=== PATIENT | male | born 1950 | race Two or more races ===

== ENCOUNTER 2016-11-21 13:39 | Inpatient (IN) | payer OTHER ==
[~2016-11-21] VITALS: Ht 198.1 cm; Wt 88.0 kg
[2016-11-21] MEDS ORDERED: BENAZEPRIL HCL10 MG ORAL (13:45)
[2016-11-21] MEDS ORDERED: SIMVASTATIN5 MG ORAL (13:45)
--- NOTE | 2016-11-21 13:50 | Emergency Room Report ---
History of Present Illness General Chief Complaint: General Complaint Source: Patient, EMS Present Illness HPI Patient 66-year-old male who presented after increased palpitations. Patient was brought in by EMS. Patient was noted to have a rapid heartbeat with a rate of 180. Patient denied chest pain. He reported feeling slightly lightheaded at the time of palpitations. He denied prior episodes. Patient stated that he was having some brief episode of chest pain which lasted less than 20 minutes. The patient denied recent fever. He denied any vomiting. Allergies: Coded Allergies: No Known Allergies (Unverified , 11/21/16) Patient History Past Medical History: see triage record Reviewed Nursing Documentation: PMH: Agreed, PSxH: Agreed Nursing Documentation-PMH Past Medical History: No History, Except For Hx Hypertension: Yes Review of Systems All Other Systems: negative except mentioned in HPI Physical Exam Vital Signs Date Time Temp Pulse Resp B/P Pulse Ox O2 Delivery O2 Flow Rate FiO2 11/21/16 13:37 97.0 96 20 124/86 95 Room Air Sp02 EP Interpretation: reviewed, normal General Appearance: normal inspection, well appearing, no apparent distress, alert, GCS 15 Head: atraumatic ENT: normal ENT inspection, hearing grossly normal, normal voice Neck: normal inspection, full range of motion, supple, no bony tend Respiratory: normal inspection, lungs clear, normal breath sounds, no respiratory distress, no retraction, no wheezing Cardiovascular #1: regular rate, rhythm, no edema Gastrointestinal: normal inspection, normal bowel sounds, non tender, soft, no guarding, no hernia Genitourinary: no CVA tenderness Musculoskeletal: normal inspection, back normal, normal range of motion Neurologic: normal inspection, alert, oriented x3, responsive, bobtailer III-XII nml as tested, speech normal Psychiatric: normal inspection, judgement/insight normal, mood/affect normal Skin: normal inspection, normal color, no rash Medical Decision Making Diagnostic Impression: Primary Impression: Supraventricular arrhythmia Additional Impression: ACS (acute coronary syndrome) ER Course Patient presented for palpitations. The differential diagnosis included was not limited to arrhythmia, thyroid storm, sepsis, anemia, myocardial infarction , alcohol withdrawal, stimulant abuse, caffeine overdose among others. Because of complexity of patient's case laboratory testing and imaging studies were ordered.The patient was noted to have some possible ischemic changes on his EKG. Patient denied any chest pain throughout stay. Patient was given metoprolol 5 mg IV. A chest x-ray one view read by radiology showed a atelectasis without evident infiltrate or possible mild cardiomegaly. The patient's initial laboratory testing was unremarkable.Patient is being admitted due to ischemic changes on EKG and need for further cardiac workup. Dr. Luis Angel Mathis was contacted for inpatient management. Labs Test 11/21/16 14:25 White Blood Count 6.5 K/UL (4.8-10.8) Red Blood Count 5.69 M/UL (4.70-6.10) Hemoglobin 16.9 G/DL (14.2-18.0) Hematocrit 50.8 % (42.0-52.0) Mean Corpuscular Volume 89 FL (80-99) Mean Corpuscular Hemoglobin 29.6 PG (27.0-31.0) Mean Corpuscular Hemoglobin Concent 33.2 G/DL (32.0-36.0) Red Cell Distribution Width 12.4 % (11.6-14.8) Platelet Count 177 K/UL (150-450) Mean Platelet Volume 7.7 FL (6.5-10.1) Neutrophils (%) (Auto) 73.0 % (45.0-75.0) Lymphocytes (%) (Auto) 16.7 % (20.0-45.0) Monocytes (%) (Auto) 7.6 % (1.0-10.0) Eosinophils (%) (Auto) 1.4 % (0.0-3.0) Basophils (%) (Auto) 1.4 % (0.0-2.0) Prothrombin Time 10.5 SEC (9.30-11.50) Prothromb Time International Ratio 1.0 (0.9-1.1) Activated Partial Thromboplast Time 27 SEC (23-33) Sodium Level 136 mEQ/L (135-145) Potassium Level 4.6 mEQ/L (3.4-4.9) Chloride Level 95 mEQ/L (98-107) Carbon Dioxide Level 22 mEQ/L (20-30) Anion Gap 19 (5-15) Blood Urea Nitrogen 17 mg/dL (7-23) Creatinine 1.0 mg/dL (0.7-1.2) Estimat Glomerular Filtration Rate > 60 mL/min (>60) Glucose Level 106 mg/dL (74-106) Calcium Level 9.9 mg/dL (8.6-10.2) Total Bilirubin 0.3 mg/dL (0.0-1.2) Aspartate Amino Transf (AST/SGOT) 39 U/L (5-40) Alanine Aminotransferase (ALT/SGPT) 25 U/L (3-41) Alkaline Phosphatase 55 U/L (40-129) Total Creatine Kinase 179 U/L (38-174) Creatine Kinase MB 4.4 ng/mL (< 6.7) Creatine Kinase MB Relative Index 2.4 Troponin I < 0.30 ng/mL (<=0.30) Pro-B-Type Natriuretic Peptide 24 pg/mL (0-125) Total Protein 7.7 g/dL (6.6-8.7) Albumin 4.5 g/dL (3.5-5.2) Globulin 3.2 g/dL Albumin/Globulin Ratio 1.4 (1.0-2.7) EKG Diagnostic Results Rate: normal - 98 Rhythm: NSR ST Segments: other - slight st depression lateral leads rate 98 ASA given to the pt in ED: Yes Last Vital Signs Date Time Temp Pulse Resp B/P Pulse Ox O2 Delivery O2 Flow Rate FiO2 11/21/16 13:37 97.0 96 20 124/86 95 Room Air Status: improved Disposition: ADMITTED INPATIENT Condition: Serious Rich Triplett November 21, 2016 13:50
[2016-11-21] MEDS ORDERED: Aspirin Baby 81mg ORAL ONE (14:00)
[2016-11-21 14:58] LABS: BASOPHILS % (AUTO) 1.4 % (0.0-2.0); EOSINOPHILS % (AUTO) 1.4 % (0.0-3.0); LYMPHOCYTES % (AUTO) 16.7 % (20.0-45.0); MEAN CORPUSCULAR HEMOGLOBIN 29.6 PG (27.0-31.0); MEAN CORPUSCULAR HGB CONC 33.2 G/DL (32.0-36.0); MEAN CORPUSCULAR VOLUME 89 FL (80-99); MEAN PLATELET VOLUME 7.7 FL (6.5-10.1); MONOCYTES % (AUTO) 7.6 % (1.0-10.0); PLATELET COUNT 177 K/UL (150-450); RED BLOOD COUNT 5.69 M/UL (4.70-6.10); RED CELL DISTRIBUTION WIDTH 12.4 % (11.6-14.8); WHITE BLOOD COUNT 6.5 K/UL (4.8-10.8)
[2016-11-21] MEDS ORDERED: Metoprolol 5mg/5ml Inj IVP ONE (15:00)
[2016-11-21 15:13] LABS: ALANINE AMINOTRANSFERASE 25 U/L (3-41); ALBUMIN/GLOBULIN RATIO 1.4 (1.0-2.7); ANION GAP 19 (5-15); ASPARTATE AMINO TRANSFERASE 39 U/L (5-40); CALCIUM 9.9 mg/dL (8.6-10.2); CARBON DIOXIDE 22 mEQ/L (20-30); CHLORIDE 95 mEQ/L (98-107); GLOMERULAR FILTRATION RATE > 60 mL/min (>60); HEMOLYSIS 207; POTASSIUM 4.6 mEQ/L (3.4-4.9); SODIUM 136 mEQ/L (135-145); TOTAL PROTEIN 7.7 g/dL (6.6-8.7); TROPONIN I < 0.30 ng/mL (<=0.30)
[2016-11-21 15:23] LABS: CKMB 4.4 ng/mL (< 6.7); PROTHROMBIN TIME 10.5 SEC (9.30-11.50)
[2016-11-21 15:28] VITALS: BP 127/89
[2016-11-21 17:58] VITALS: BP 112/65
[2016-11-21 19:45] VITALS: BP 106/69
[2016-11-21 20:32] VITALS: BP 113/71
[2016-11-21 20:33] VITALS: BP 113/71
[2016-11-21 23:44] LABS: TROPONIN I < 0.30 ng/mL (<=0.30)
--- NOTE | 2016-11-21 23:49 | Consultation ---
DATE OF CONSULTATION: 11/21/2016 CARDIOLOGY CONSULTATION CONSULTING PHYSICIAN: Luis Angel Mathis M.D. REQUESTING PHYSICIAN: Amandeep Ness M.D. REASON FOR ADMISSION: Chest pain. HISTORY OF PRESENT ILLNESS: This is a 66-year-old male with multiple risk factors for premature coronary disease. 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 Paramedics were summoned and reportedly, he had SVT, although no strips were obtained. The patient was transported here where his initial electrocardiogram revealed sinus rhythm with no acute changes and troponin I was negative. PAST MEDICAL HISTORY: Hypertension and hyperlipidemia. MEDICATIONS: Medications prior to admission reviewed and reconciled. ALLERGIES: None. SOCIAL HISTORY: Denies smoking or alcohol use. REVIEW OF SYSTEMS: No fevers or chills. No cough. No history of asthma. No history of blood clotting. No change in bowel habits. No history of prostate cancer. No history of seizure or stroke. No history of diabetes or thyroid disorder. He is on anti-lipid drugs. PHYSICAL EXAMINATION: GENERAL: The patient is well developed, well nourished, in no distress. VITAL SIGNS: Blood pressure 124/86, pulse 96, respirations 20, and afebrile. HEENT: Conjunctivae are pink. Sclerae are anicteric. Oropharynx clear. Mucous membranes moist. No arcus senilis or xanthelasma. NECK: Supple. No bruits or adenopathy. LUNGS: Clear. CHEST WALL: Without tenderness or deformity. CARDIAC: Regular rhythm and rate. Normal S1 and S2 with no murmur, rub, or gallop. ABDOMEN: Soft and nontender. EXTREMITIES: Without edema. NEUROLOGIC: Nonfocal. Distal pulses 2+. LABORATORY AND DIAGNOSTIC DATA: Chest x-ray is reportedly negative, but needs to be reviewed by me. IMPRESSION: 1. Acute coronary syndrome. 2. History of hypertension. 3. History of hyperlipidemia. 4. Possible supraventricular tachycardia, self-limited. PLAN: Cardiac monitoring. Oral aspirin. Beta-blockade. Continue statin drug. Check for lipid panel, thyroid panel, and serial troponin levels. If no definitive signs of ischemia, we will initiate provocative stress test to assess coronary flow reserve. Luis Angel Mathis M.D. DR: Radha JOB#: [id number] CC:
[2016-11-22] VITALS (7 sets, daily range): BP systolic 98–140; BP diastolic 55–79
[2016-11-22] MEDS: Aspirin Baby 81mg ORAL SCH (08:05)
[2016-11-22] MEDS: Carvedilol 6.25mg Tab ORAL SCH ×2 (08:05→21:11)
[2016-11-22] MEDS: Heparin 5000 units/ml inj SUBQ SCH ×2 (08:08→21:12)
[2016-11-22 08:30] LABS: TROPONIN I < 0.30 ng/mL (<=0.30)
[2016-11-22 08:35] LABS: THYROID STIMULATING HORMONE 1.51 uIU/mL (0.300-4.500)
--- NOTE | 2016-11-22 12:46 | Cardiology Report ---
APPROVED REPORT EKG Measurement Heart [id number] Normal sinus rhythm Normal ECG
--- NOTE | 2016-11-22 13:07 | Cardiology Report ---
APPROVED REPORT EXAM: Two-dimensional and M-mode echocardiogram with Doppler and color Doppler. INDICATION Chest Pain M-Mode DIMENSIONS IVSd1.7 (0.7-1.1cm)Left Atrium (MM)3.4 (1.6-4.0cm) LVDd4.4 (3.5-5.6cm)Aortic Root4.4 (2.0-3.7cm) PWd1.4 (0.7-1.1cm)Aortic Cusp Exc.1.8 (1.5-2.0cm) LVDs3.0 (2.5-4.0cm) Normal left ventricular chamber size, systolic function and wall motion. Left ventricular ejection fraction estimated to be 60-65 %. Moderate left ventricular hypertrophy. Anterior Echo-free space, may be due to pericardial fat or effusion. All other cardiac chamber sizes are within normal limits. Focal aortic valve sclerosis with adequate cusp excursion. Thickened mitral valve leaflets with normal excursion. Mitral annulus and aortic root calcification. Aortic root dilatation. Pulmonic valve not well visualized. Normal tricuspid valve structure. IVC at normal size with physiologic collapse. A color flow and spectral Doppler study was performed and revealed: Moderate aortic regurgitation. Trace mitral regurgitation. Mitral diastolic velocities suggest reduced left ventricular relaxation c/w mild LV diastolic dysfunction (Grade I). Trace tricuspid regurgitation. Tricuspid systolic velocities suggests peak right ventricular systolic pressure of 22 mmHg.
--- NOTE | 2016-11-22 13:12 | Diagnostic Imaging Report ---
Indication: Chest Pain Comparison: None A single view chest radiograph was obtained. Findings: Increased parenchymal density noted at the lung bases likely atelectasis given low lung volumes. Heart size may be slightly increased. Bones are unremarkable. There is a calcific focus projected over the right rotator cuff. Impression: Basilar atelectasis suspected.
--- NOTE | 2016-11-22 15:17 | Diagnostic Imaging Report ---
Indication: chest pain Technique: The study was conducted under the supervision of a image archivist. Exercise on a treadmill utilizing (Angel protocol) followed by intravenous administration of 30.8 mCi of technetium 99m Myoview was performed. Three plane SPECT imaging of the heart was then performed. A resting study was performed as part of the one-day protocol with 9.7 mCi of technetium 99m myoview injected intravenously at that time. Three plane SPECT imaging of the heart was obtained. Comparison: None Clinical data: Resting heart rate: 60. Peak exercise heart rate: 134 (86% maximum predicted heart rate) resting BP: 151/89. Peak exercise BP: 175/90 Patient exercised for 7 minutes and stopped due to fatigue. EKG: Normal sinus rhythm 1. Clinical response: Non ischemic 2. Electrocardiographic response: Non ischemic Findings: The myocardial perfusion scan demonstrates no fixed or reversible perfusion defects. Left ventricle ejection fraction is estimated at 65%. Impression: Negative myocardial perfusion scan
--- NOTE | 2016-11-22 17:08 | History and Physical Report ---
DATE OF ADMISSION: 11/21/2016 CHIEF COMPLAINT: Chest pain. HISTORY OF PRESENT ILLNESS: The patient is a 66-year-old male. 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 He denies any fever or chills. He has had no cough. Denies any exertional shortness of breath. No orthopnea or PND. On evaluation in the emergency room, the patient's EKG was unremarkable. Pain, resolved spontaneously after 15 minutes. His cardiac enzymes have been negative x2. He is now admitted for further evaluation. PAST MEDICAL HISTORY: As above. PAST SURGICAL HISTORY: None. MEDICATIONS: Current medications reconciled and reviewed. ALLERGIES: None. SOCIAL HISTORY: The patient is a smoker. No alcohol. No drugs. FAMILY HISTORY: None. REVIEW OF SYSTEMS: General: No fever or chills. HEENT: No headaches or visual changes. Cardiopulmonary: Positive for chest pain, but no shortness of breath. Gastrointestinal: No nausea or vomiting. Genitourinary: No urgency or frequency. Musculoskeletal: No dependent swelling. Neurologic: No seizures. PHYSICAL EXAMINATION: GENERAL: The patient is well-developed male, in no apparent distress. VITAL SIGNS: Temperature 97.7 degrees, pulse 59, respirations 20, and blood pressure 134/77. HEART: Regular rate and rhythm. LUNGS: Lungs are clear. ABDOMEN: Soft, nontender and nondistended. EXTREMITIES: Without clubbing, cyanosis, or edema. LABORATORY AND DIAGNOSTIC DATA: Troponin was negative x2. Sodium is 136. White count 6. Coagulations were normal. EKG shows sinus rhythm without any acute ST-T wave changes. ASSESSMENT: This is a pleasant male with a history of hypertension and hyperlipidemia admitted with complaints of chest pain. 1. Chest pain, possible acute coronary syndrome. 2. Hypertension. 3. Hyperlipidemia. PLAN: Cardiology consultation. Antiplatelet therapy, p.r.n. nitrates, beta-blockade, and stress test in the morning. Amandeep Ness M.D. DR: FRENCH JOB#: [id number] CC:
[2016-11-23 03:53] VITALS: BP 128/75
[2016-11-23 08:00] VITALS: BP 120/78
[2016-11-23 08:10] VITALS: BP 128/75
[2016-11-23] MEDS: Aspirin Baby 81mg ORAL SCH (08:10)
[2016-11-23] MEDS: Carvedilol 6.25mg Tab ORAL SCH (08:10)
[2016-11-23] MEDS: Heparin 5000 units/ml inj SUBQ SCH (08:11)
[2016-11-23] MEDS ORDERED: COREG6.25 MG ORAL (08:51)
[2016-11-23] MEDS ORDERED: LIPITOR20 MG ORAL (08:51)
[2016-11-23] MEDS ORDERED: ASPIRIN81 MG ORAL (08:51)
[2016-11-23] MEDS ORDERED: BENAZEPRIL HCL40 MG ORAL (08:51)
--- NOTE | 2016-11-24 00:39 | Discharge Summary ---
DATE OF ADMISSION: 11/21/2016 DATE OF DISCHARGE: 11/23/2016 ADMISSION DIAGNOSIS: Chest pain and unstable angina. DISCHARGE DIAGNOSIS: Chest pain and unstable angina. HOSPITAL COURSE: The patient is a pleasant male with a history of hypertension and hyperlipidemia. 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 He was admitted here to rule out for myocardial infarction with serial enzymes and EKG. He underwent a nuclear medicine stress test, which was unremarkable. On discharge, the patient was pain free. He will be discharged home with instructions to follow up with his PMD. DISCHARGE MEDICATIONS: Please see discharge list for discharge medications. DIET: Low-fat diet. ACTIVITY: Ad-greg. Amandeep Ness M.D. DR: ALFONSO JOB#: [id number] CC:
--- NOTE | 2016-11-26 00:59 | Progress Note ---
DATE: 11/23/2016 CARDIOLOGY PROGRESS NOTE: SUBJECTIVE: The patient had a stress test yesterday. Myocardial perfusion imaging revealed no defects. Ejection fraction was normal. Stress test, the patient achieved 84% of maximum predicted heart rate. There were no EKG changes or symptoms during the study. OBJECTIVE: VITAL SIGNS: Blood pressure is 128/75, pulse rate 68, respiratory rate 18, and afebrile. NECK: Supple. LUNGS: Clear. CARDIAC: Regular. Normal S1 and S2. ABDOMEN: Soft. EXTREMITIES: No edema. LABORATORY DATA: Total cholesterol was 194, HDL 48, and LDL 118. TSH is 1.5. IMPRESSION: 1. Microvascular angina, low likelihood for flow-limiting coronary artery disease. 2. Hypertension, controlled. 3. Hyperlipidemia, on statin drug. PLAN: 1. Continue current regimen. 2. Maintain anti-platelet therapy. 3. No need to continue beta-blockers unless confirmed atrial arrhythmias in the future. 4. Outpatient followup. Luis Angel Mathis M.D. DR: Sahil JOB#: [id number] CC:
--- NOTE | 2016-11-26 01:29 | Progress Note ---
DATE: 11/22/2016 CARDIOLOGY PROGRESS NOTE: SUBJECTIVE: The patient has not had any recurring chest pain since admission. He is scheduled for a stress test today. Troponin levels have been negative. He denies shortness of breath. OBJECTIVE: VITAL SIGNS: Blood pressure 124/79, heart rate 59 to 72, respiratory rate 18, and afebrile. NECK: Supple. LUNGS: Clear. CARDIAC: Regular. Normal S1, S2 with no murmur. ABDOMEN: Obese. EXTREMITIES: Without edema. DIAGNOSTIC DATA: A 2D echocardiogram is reviewed and notable for normal ejection fraction with mild to moderate aortic insufficiency. RECOMMENDATIONS: Proceed with myocardial perfusion scan. Outpatient RPR study in view of aortic insufficiency. I will reassess antihypertensive and antianginal regimen following stress test. Luis Angel Mathis M.D. DR: Carl JOB#: [id number] CC:
== END 2016-11-23 10:03 | disposition home or self-care (01) | DRG 311 ==
LOC: EDBD 13:39 → EMR 14:43 → 2E 15:29 → EDBEDREQ 18:43 → 2E 19:31
DX: I20.0 Unstable angina (principal); I10 Essential (primary) hypertension; I47.1 Supraventricular tachycardia; E78.5 Hyperlipidemia, unspecified; F17.200 Nicotine dependence, unspecified, uncomplicated; I35.1 Nonrheumatic aortic (valve) insufficiency
CPT/HCPCS: 36415; 71010; 78452; 80053; 80061; 82550; 82553; 83880; 84443; 84484; 85025; 85610; 85730; 93005; 93017; 93306